=== PATIENT | female | born 1940 | race African-American/Black ===

== ENCOUNTER 2017-01-27 10:44 | Outpatient (CLI) | payer MEDICARE ==
[2017-01-27 12:48] LABS: #Basophils 0.1 thou/uL (0.0-0.2); #Eosinphils 0.2 thou/uL (0.0-0.7); #Lymphocytes 1.8 thou/uL (1.20-3.40); #Monocytes 0.4 thou/uL (0.11-0.59); #Neutrophils 2.8 thou/uL (1.40-6.50); %Basophils 1.2 % (0.0-1.0); %Eosinophils 3.7 % (0.0-10.0); %Lymphocytes 34.5 % (21.0-51.0); %Monocytes 8.1 % (0.0-10.0); %Neutrophils 52.4 % (42.0-75.0); Hemoglobin 10.9 g/dL (12.0-16.0); Mean Corpuscular HGB CONC 31.2 g/dL (32.0-36.0); Mean Corpuscular Hemoglobin 27.8 pg (27.0-31.0); Mean Corpuscular Volume 89.1 fl (81.0-99.0); Mean Platelet Volume 7.7 fL (7.4-10.4); Platelet Count 240 thou/uL (130-400); RBC Distribution Width 13.1 % (11.5-14.5); Red Blood Cell (RBC) Count 3.93 mill/uL (4.20-5.40); White Blood Cell (WBC) Count 5.3 thou/uL (4.8-10.8)
[2017-01-27 13:06] LABS: ALT (SGPT) 8 U/L (0-55); AST (SGOT) 11 U/L (5-34); Albumin 4.2 g/dL (3.4-4.8); Alkaline Phosphatase 85 U/L (40-150); Anion Gap 15 mmol/L (10-20); BUN (Urea Nitrogen) 28 mg/dL (9.8-20.1); Bilirubin, Total 0.3 mg/dL (0.2-1.2); Calc. Creatinine Clearance 0 mL/min (70-130); Calcium 9.7 mg/dL (7.8-10.44); Carbon Dioxide 26 mmol/L (23-31); Cardiac Risk 3.6 (Less than 4.5); Chloride 103 mmol/L (98-107); Cholesterol 204 mg/dL (< 200 Desired); Estimated GFR-MDRD 45; Globulin 2.9 g/dL (2.4-3.5); Glucose 112 mg/dL (83-110); HDL Cholesterol 56 mg/dL (>60 Neg Risk); LDL Cholesterol, Calculated 126 mg/dL; Potassium 3.7 mmol/L (3.5-5.1); Protein, Total 7.1 g/dL (5.8-8.1); Sodium 140 mmol/L (136-145); Triglycerides 110 mg/dL (Less than 150)
[2017-01-27 13:26] LABS: Bilirubin Negative (Negative); Blood, Urine Negative (Negative); Clarity Slightly Cloudy (Clear); Glucose, Urine (Dipstick) Negative (Negative); Leukocyte Small (Negative); Nitrite Negative (Negative); Protein, Urine (Dipstick) Negative (Neg-Trace); Urobilinogen 0.2 mg/dL (0.2-1.0); pH, Urine 5.5 (5.0-9.0)
[2017-01-27 13:35] LABS: Specific Gravity, Urine 1.007 (1.002-1.036)
[2017-01-27 13:39] LABS: Bacteria/HPF 1+ HPF (None Seen); Crystals/HPF RARE SODIUM URATE HPF (Negative); RBC/HPF 0-3 HPF (0-3); Squamous Epithelial 21-50 HPF (0-3)
[2017-01-27 13:43] LABS: Hemoglobin A1c 6.6 % (4.0-6.0)
== END 2017-01-27 10:45 | disposition home or self-care (01) ==
LOC: NAVSJIPCSP 10:44
PROVIDERS: ATTEND Internal Medicine
DX: E78.5 Hyperlipidemia, unspecified (principal); I25.10 Atherosclerotic heart disease of native coronary artery without angina pectoris; E11.51 Type 2 diabetes mellitus with diabetic peripheral angiopathy without gangrene; Z79.899 Other long term (current) drug therapy
CPT/HCPCS: 36415; 80053; 80061; 81003; 81015; 83036; 85025

== ENCOUNTER 2017-02-03 14:32 | Outpatient (CLI) | payer MEDICARE | END 2017-02-03 14:33 | disposition home or self-care (01) | LOC: NAV LABSP 14:32 | PROVIDERS: ATTEND Internal Medicine | DX: E78.5 Hyperlipidemia, unspecified (principal); I25.10 Atherosclerotic heart disease of native coronary artery without angina pectoris; E11.51 Type 2 diabetes mellitus with diabetic peripheral angiopathy without gangrene; Z79.899 Other long term (current) drug therapy | CPT/HCPCS: 82274 ==

== ENCOUNTER 2017-05-06 09:31 | Outpatient (CLI) | payer MEDICARE ==
[2017-05-06 12:40] LABS: Hemoglobin A1c 6.5 % (4.0-6.0)
[2017-05-06 12:58] LABS: Cardiac Risk 2.6 (Less than 4.5)
[2017-05-06 18:07] LABS: Hep C IgG Ab Non-Reactive (NonReactive); Hep C Index 0.08 S/CO (0-0.79)
== END 2017-05-06 09:32 | disposition home or self-care (01) ==
LOC: NAVSJIPCSP 09:31
PROVIDERS: ATTEND Internal Medicine
DX: E78.5 Hyperlipidemia, unspecified (principal); Z72.89 Other problems related to lifestyle; E11.51 Type 2 diabetes mellitus with diabetic peripheral angiopathy without gangrene; Z79.899 Other long term (current) drug therapy
CPT/HCPCS: 36415; 80061; 83036; 86803

== ENCOUNTER 2022-04-28 09:15 | Emergency (ER) | payer MEDICARE ==
[2022-04-28 10:20] LABS: Bilirubin Negative (Negative); Clarity Clear (Clear); Glucose, Urine (Dipstick) Negative (Negative); Ketone, Urine Negative (Negative); Leukocyte Negative (Negative); Nitrite Negative (Negative); Protein, Urine (Dipstick) > or equal to 300 mg/dL (Neg-Trace); Urobilinogen 0.2 mg/dL (Less than 2)
[2022-04-28 10:22] LABS: Blood, Urine Negative (Negative); Specific Gravity, Urine 1.028 (1.002-1.036)
[2022-04-28 10:59] LABS: Bacteria/HPF 1+ HPF (None Seen); RBC/HPF None Seen HPF (0-3); WBC/HPF 0-3 HPF (0-3)
[2022-04-28 11:00] LABS: Mucous/LPF 1+ LPF (<2+)
== END 2022-04-28 10:40 | disposition home or self-care (01) ==
LOC: NAV ERS 09:15
DX: U07.1 COVID-19 (principal); J06.9 Acute upper respiratory infection, unspecified; J44.9 Chronic obstructive pulmonary disease, unspecified; I10 Essential (primary) hypertension; E11.9 Type 2 diabetes mellitus without complications; E78.00 Pure hypercholesterolemia, unspecified; I48.91 Unspecified atrial fibrillation; F17.210 Nicotine dependence, cigarettes, uncomplicated; Z79.01 Long term (current) use of anticoagulants; Z79.84 Long term (current) use of oral hypoglycemic drugs; Z79.899 Other long term (current) drug therapy
CPT/HCPCS: 71046; 87804 ×2; U0003; U0005; 81003; 81015